=== PATIENT | female | born 1990 | race Caucasian/White ===

== ENCOUNTER 2025-08-07 17:18 | Emergency (ER) | payer BC ==
--- NOTE | 2025-08-07 17:50 | ERPHSYRPT ---
- History of Present Illness Historian: patient Exam Limitations: no limitations Timing/Duration: today Quality: sharpness, stabbing Abdominal Pain Onset Location: RUQ, flank Pain Radiation: no radiation Severity of Pain-Max: severe Severity of Pain-Current: moderate Previous symptoms: same symptoms as today Hx Tetanus, Diphtheria Vaccination/Date Given: Yes <JAYDEN WADE - Last Filed: 08/07/25 19:09> <RYAN ROMAN - Last Filed: 08/07/25 19:46> - History of Present Illness Time Seen by Provider: 08/07/25 17:49 Physician History: Patient presents to the emergency room with right sided flank/abdominal pain. Patient has a history of similar symptoms for which she was found to have UTI requiring IV antibiotics. She has a history of gastric bypass as well as cholecystectomy. Patient reports normal bowel movements, passing gas. She reports some dysuria. (JAYDEN WADE) Allergies/Adverse Reactions: topiramate [From [employer]] Adverse Reaction (Verified 08/07/25 17:56) Home Medications: Furosemide 20 mg [Lasix 20 mg] 20 mg PO UD PRN 05/14/25 [History] Omeprazole 20 mg PO DAILY 05/14/25 [History] Potassium Chloride 10 meq PO DAILY 05/14/25 [History] Travel Risk - Emerging Infectious Disease Are you exhibiting symptoms associated with any current EIDs: Yes Symptoms: Abdominal Pain <JAYDEN WADE - Last Filed: 08/07/25 19:09> - Review of Systems All Other Systems: Reviewed and Negative <JAYDEN WADE - Last Filed: 08/07/25 19:09> - Past Medical History Pertinent Past Medical History: Yes Neurological History: No Pertinent History Cardiac History: No Pertinent History Respiratory History: No Pertinent History Endocrine Medical History: Liver Disease Musculoskeletal History: Other Other Medical History: HX OF FATTY LIVER AND PCOS. - Past Surgical History Past Surgical History: Yes Musculoskeletal: Orthopedic Surgery Female Surgical History: Section Other Surgical History: ankle surgery - Social History Smoking Status: Never smoker Exposure to second hand smoke: No Drug Use: none - Social Determinants of Health Will the patient participate in the screening: Yes Do you worry about a steady place to live?: No In the past 12 months,have you had to go without utilities?: No Transportation Issues: No Has anyone in your support network made you feel unsafe?: No Have you or anyone in your house had to go w/o enough food: No <JAYDEN WADE - Last Filed: 08/07/25 19:09> - Physical Exam General Appearance: no apparent distress, obese Respiratory Exam: normal breath sounds, lungs clear, airway intact, No respiratory distress Cardiovascular Exam: regular rate/rhythm, normal heart sounds, capillary refill <2 sec Gastrointestinal/Abdomen Exam: soft, normal bowel sounds, tenderness (RUQ, RLQ, Suprapubic) Back Exam: No CVA tenderness <JAYDEN WADE - Last Filed: 08/07/25 19:09> - Nursing Vital Signs Nursing Vital Signs: Initial Vital Signs Temperature 97.7 F 08/07/25 17:48 Pulse Rate 84 08/07/25 17:48 Blood Pressure 107/83 08/07/25 17:48 O2 Sat by Pulse Oximetry 100 08/07/25 17:48 Pain Scale Pain Intensity 4 - Course Nursing assessment & vital signs reviewed: Yes <JAYDEN WADE - Last Filed: 08/07/25 19:09> Ordered Tests: Active Orders 24 hr Category Date Time Status IV Insertion STAT Care 08/07/25 18:00 Active ABDOMEN AND PELVIS W/0 CONTRAS [CT] Stat Exams 08/07/25 18:16 Completed CBC W DIFF Stat Lab 08/07/25 18:43 Completed CMP Stat Lab 08/07/25 18:43 Completed LIPASE Stat Lab 08/07/25 18:43 Completed Lactic Acid Stat Lab 08/07/25 18:00 Completed TROPONIN Q4H Lab 08/07/25 18:43 Completed TROPONIN Q4H Lab 08/07/25 22:00 Ordered TROPONIN Q4H Lab 08/08/25 02:00 Ordered UA W/RFX UR CULTURE Stat Lab 08/07/25 18:20 Completed Medication Summary Generic Name Dose Route Start Last Admin Trade Name Freq PRN Reason Stop Dose Admin Metronidazole 500 mg in 100 mls @ 200 mls/hr 08/07/25 19:17 08/07/25 19:27 Flagyl 500 Mg Ivpb IV 08/07/25 19:46 200 mls/hr STAT STA 200 mls/hr Administration Discontinued Medications Generic Name Dose Route Start Last Admin Trade Name Freq PRN Reason Stop Dose Admin Sodium Chloride 1,000 mls @ 999 mls/hr 08/07/25 18:00 08/07/25 18:40 Sodium Chloride 0.9% 1000 Ml IV 08/07/25 19:00 999 mls/hr .Q1H1M STA Administration Sodium Chloride Confirm 08/07/25 18:36 Sodium Chloride 0.9% 1000 Ml Administered 08/07/25 18:37 Dose 1,000 mls @ ud .ROUTE .STK-MED ONE Ceftriaxone Sodium 1 gm in 100 mls @ 200 mls/hr 08/07/25 18:48 08/07/25 19:13 Rocephin 1 Gm / 100 Ml Nacl IV 08/07/25 19:17 200 mls/hr STAT ONE 200 mls/hr Administration Ceftriaxone Sodium Confirm 08/07/25 19:11 Rocephin 1 Gm / 100 Ml Nacl Administered 08/07/25 19:12 Dose 1 gm in 100 mls @ ud IV .STK-MED ONE Metronidazole Confirm 08/07/25 19:25 Flagyl 500 Mg Ivpb Administered 08/07/25 19:26 Dose 500 mg in 100 mls @ ud IV .STK-MED ONE Morphine Sulfate 2 mg 08/07/25 18:00 08/07/25 18:39 Morphine Sulfate 2 Mg/Ml Inj IV 08/07/25 18:01 2 mg STAT ONE Administration Morphine Sulfate Confirm 08/07/25 18:36 Morphine Sulfate 2 Mg/Ml Inj Administered 08/07/25 18:37 Dose 2 mg .ROUTE .STK-MED ONE Ondansetron HCl 4 mg 08/07/25 19:36 08/07/25 19:39 Ondansetron Hcl 4 Mg/2 Ml Vial IV 08/07/25 19:37 4 mg STAT ONE Administration Ondansetron HCl Confirm 08/07/25 19:39 Ondansetron Hcl 4 Mg/2 Ml Vial Administered 08/07/25 19:40 Dose 4 mg .ROUTE .STK-MED ONE Lab/Rad Data: Laboratory Result Diagrams 08/07/25 18:43 08/07/25 18:43 Laboratory Results 08/07/25 08/07/25 08/07/25 Range/Units 18:43 18:43 18:20 WBC 11.5 H (3.98-10.04) x10^3/uL RBC 4.61 (3.93-5.22) x10^6/uL Hgb 13.8 (11.2-15.7) g/dL Hct 42.4 (34.1-44.9) % MCV 92.0 (79.4-94.8) fL MCH 29.9 (25.6-32.2) pg MCHC 32.5 (32.2-35.5) g/dL RDW 12.7 (11.7-14.4) % Plt Count 213 (182-369) x10^3/uL MPV 11.0 (9.4-12.3) fL Gran % 70.7 (34.0-71.1) % Immature Gran % (Auto) 0.3 (0.001-0.429) % Nucleat RBC Rel Count 0.0 (0.00-0.2) % Eos # (Auto) 0.15 (0.04-0.36) x10^3/uL Immature Gran # (Auto) 0.04 H (0.001-0.031) x10^3u/L Absolute Lymphs (auto) 2.29 (1.18-3.74) x10^3/uL Absolute Monos (auto) 0.87 H (0.24-0.86) x10^3/uL Absolute Nucleated RBC 0.00 (0.00-0.012) x10^3u/L Lymphocytes % 19.9 (19.3-51.7) % Monocytes % 7.6 (4.7-12.5) % Eosinophils % 1.3 (0.7-5.8) % Basophils % 0.2 (0.1-1.2) % Absolute Granulocytes 8.14 H (1.56-6.13) x10^3/uL Basophils # 0.02 (0.01-0.08) x10^3/uL Sodium 137 (135-145) mmol/L Potassium 4.0 (3.5-5.1) mmol/L Chloride 105 (98-107) mmol/L Carbon Dioxide 24 (22-30) mmol/L Anion Gap 11.4 (5-15) MEQ/L BUN 9 (7-17) mg/dL Creatinine 0.74 (0.52-1.04) mg/dL Estimated GFR 108.8 ML/MIN Glucose 88 (74-106) mg/dL Lactic Acid (0.4-2.0) Calcium 8.5 (8.4-10.2) mg/dL Total Bilirubin 0.90 (0.2-1.3) mg/dL AST 25 (14-36) U/L ALT 22 (0-35) U/L Alkaline Phosphatase 70 (38-126) U/L Troponin I < 0.012 (0.000-0.033) ng/mL Serum Total Protein 6.3 (6.3-8.2) g/dL Albumin 3.8 (3.5-5.0) g/dL Lipase 65 (23-300) U/L Urine Color Dark Yellow A (Yellow) Urine Appearance Clear (Clear) Urine pH 6.0 (4.6-8.0) Ur Specific Painter 1.020 (1.005-1.030) Urine Protein Negative (Negative) Urine Glucose (UA) Negative (Negative) mg/dL Urine Ketones Trace A (Negative) Urine Blood Negative (Negative) Urine Nitrite Negative (Negative) Urine Bilirubin Negative (Negative) Urine Urobilinogen 1.0 A (0.2) mg/dL Ur Leukocyte Esterase Small A (Negative) U Hyaline Cast (Auto) NONE SEEN (0-2) /LPF Urine Microscopic RBC 0-2 (0-5) /HPF Urine Microscopic WBC 3-5 (0-5) /HPF Ur Epithelial Cells Rare (None Seen) /HPF Urine Bacteria Rare A (None Seen) /HPF Urine Culture Reflexed NO (NO) 08/07/25 Range/Units 18:00 WBC (3.98-10.04) x10^3/uL RBC (3.93-5.22) x10^6/uL Hgb (11.2-15.7) g/dL Hct (34.1-44.9) % MCV (79.4-94.8) fL MCH (25.6-32.2) pg MCHC (32.2-35.5) g/dL RDW (11.7-14.4) % Plt Count (182-369) x10^3/uL MPV (9.4-12.3) fL Gran % (34.0-71.1) % Immature Gran % (Auto) (0.001-0.429) % Nucleat RBC Rel Count (0.00-0.2) % Eos # (Auto) (0.04-0.36) x10^3/uL Immature Gran # (Auto) (0.001-0.031) x10^3u/L Absolute Lymphs (auto) (1.18-3.74) x10^3/uL Absolute Monos (auto) (0.24-0.86) x10^3/uL Absolute Nucleated RBC (0.00-0.012) x10^3u/L Lymphocytes % (19.3-51.7) % Monocytes % (4.7-12.5) % Eosinophils % (0.7-5.8) % Basophils % (0.1-1.2) % Absolute Granulocytes (1.56-6.13) x10^3/uL Basophils # (0.01-0.08) x10^3/uL Sodium (135-145) mmol/L Potassium (3.5-5.1) mmol/L Chloride (98-107) mmol/L Carbon Dioxide (22-30) mmol/L Anion Gap (5-15) MEQ/L BUN (7-17) mg/dL Creatinine (0.52-1.04) mg/dL Estimated GFR ML/MIN Glucose (74-106) mg/dL Lactic Acid 0.7 (0.4-2.0) Calcium (8.4-10.2) mg/dL Total Bilirubin (0.2-1.3) mg/dL AST (14-36) U/L ALT (0-35) U/L Alkaline Phosphatase (38-126) U/L Troponin I (0.000-0.033) ng/mL Serum Total Protein (6.3-8.2) g/dL Albumin (3.5-5.0) g/dL Lipase (23-300) U/L Urine Color (Yellow) Urine Appearance (Clear) Urine pH (4.6-8.0) Ur Specific Painter (1.005-1.030) Urine Protein (Negative) Urine Glucose (UA) (Negative) mg/dL Urine Ketones (Negative) Urine Blood (Negative) Urine Nitrite (Negative) Urine Bilirubin (Negative) Urine Urobilinogen (0.2) mg/dL Ur Leukocyte Esterase (Negative) U Hyaline Cast (Auto) (0-2) /LPF Urine Microscopic RBC (0-5) /HPF Urine Microscopic WBC (0-5) /HPF Ur Epithelial Cells (None Seen) /HPF Urine Bacteria (None Seen) /HPF Urine Culture Reflexed (NO) <JAYDEN WADE - Last Filed: 08/07/25 19:09> <RYAN ROMAN - Last Filed: 08/07/25 19:46> - Progress Progress Note: Patients symptoms not typical for emergent causes of abdominal pain such as, but not limited to, appendicitis, abdominal aortic aneurysm, surgical biliary disease, pancreatitis, SBO, mesenteric ischemia, serious intra-abdominal bacterial illness. Presentation also not typical of gynecologic emergencies such as TOA, Ovarian Torsion, PID. Not Ectopic. Doubt atypical ACS. CBC, CMP, Lipase, UA, CT A/P ordered UA shows UTI. Started on Ceftriaxone. CT shows appendicitis. Added Flagyl. Surgeon for gastric bypass at [facility] in [facility]. Signed out to Dr. Roman at 1900. (JAYDEN WADE) Evaluated patient at [facility] patient has appendicitis on CT currently on IV Rocephin and Flagyl n.p.o. IV fluids are going pain is controlled patient had Rico-[id number] surgery by Dr. Finch at [facility] in November patient will need to be transferred and requesting that she see her surgeon for appendicitis 08/07/25 19:21 IMPRESSION: 1. The appendix appears enlarged, measuring about 1.1 cm, and is surrounded by fat stranding. Findings suggestive of acute appendicitis. Clinical correlation with lab data and further assessment by IV contrast is advised. New Finding. 2. A non-obstructive 2 mm stone in the mid-pole of the left kidney noted. Stable. 3. Small para-umbilical hernia passing omental fat. Stable. 4. 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 08/07/25 19:25 08/07/25 19:45 Discussed the case with the patient's bariatric surgeon at [facility] who accepts the patient for transfer for appendicitis (RYAN ROMAN) <JAYDEN WADE - Last Filed: 08/07/25 19:09> - Departure Departure Disposition: Transfer Critical Care Time: No <RYAN ROMAN - Last Filed: 08/07/25 19:46> - Departure Clinical Impression: Appendicitis Qualifiers: Appendicitis type: unspecified Qualified Code(s): K37 - Unspecified appendicitis Abdominal pain Qualifiers: Abdominal location: unspecified location Qualified Code(s): R10.9 - Unspecified abdominal pain Condition: Stable Referrals: MICHAELA SONG DO [Primary Care Provider, [facility]] - Follow up/PCP as directed Instructions: Abdominal pain
[2025-08-07 18:36] LABS: Glucose, Urine Negative (Negative); Protein,Urine Dip Negative (Negative); RBC 0-2 /HPF (0-5)
[2025-08-07] MEDS ORDERED: MORPHINE SULFATE 2 MG INJ ONE (18:36)
[2025-08-07] MEDS: MORPHINE SULFATE 2 MG INJ IV ONE (18:39)
[2025-08-07 18:46] LABS: BASOPHIL % 0.2 % (0.1-1.2); Basophil (Absolute #) 0.02 x10^3/uL (0.01-0.08); Eosinophil (Absolute #) 0.15 x10^3/uL (0.04-0.36); Hematocrit 42.4 % (34.1-44.9); Hemoglobin 13.8 g/dL (11.2-15.7); IMMATURE GRAN # 0.04 x10^3u/L (0.001-0.031); IMMATURE GRAN % 0.3 % (0.001-0.429); Lymphocyte (Absolute #) 2.29 x10^3/uL (1.18-3.74); Mean Corpuscular Hemoglobin 29.9 pg (25.6-32.2); Mean Corpuscular Hgb Concent. 32.5 g/dL (32.2-35.5); Monocyte (Absolute #) 0.87 x10^3/uL (0.24-0.86); NUCLEATED RBC # 0.00 x10^3u/L (0.00-0.012); NUCLEATED RBC % 0.0 % (0.00-0.2); Platelet Count 213 x10^3/uL (182-369); Red Blood Count 4.61 x10^6/uL (3.93-5.22); White Blood Count 11.5 x10^3/uL (3.98-10.04)
--- NOTE | 2025-08-07 19:03 | XRAY ---
CLINICAL HISTORY: abd pain COMPARISON: 05/14/2025. TECHNIQUE: Non-contrast CT of the abdomen and pelvis was performed, with the following protocol: axial images, and reconstructed coronal and sagittal images. No intravenous contrast was administered. One of the following dose reduction techniques was utilized for this exam: Automated exposure control, adjustment of the mA and/or kV according to patient size, and use of iterative reconstruction. FINDINGS: Abdomen: Appendix: The appendix appears enlarged measuring about 1.1 cm, and is surrounded by fat stranding. Findings suggestive of acute appendicitis. Clinical correlation with lab data and further assessment by IV contrast is advised. New Finding. No signs of perforation or abscess formation. Liver: Normal in size, shape, and density. No focal lesions, cysts, or masses were identified. Hepatic vasculature and biliary ducts are unremarkable. Gallbladder and Biliary System: The gallbladder is surgically excised. No billary dilatation. Pancreas: The pancreatic head, body, and tail are visualized and appear normal in size and density. No pancreatic masses or calcifications were noted. The pancreatic duct is not dilated. Spleen: Normal in size, shape, and density. timy calcific granuloma. No splenic solid lesions or masses were identified. Kidneys and Adrenal Glands: Both kidneys are normal in size, shape, and position. 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 Stable. A non-obstructive 2 mm stone in the mid pole of the left kidney noted. Cortical thickness is within normal limits. No hydronephrosis. Adrenal glands are unremarkable with no evidence of masses or hyperplasia. Pelvis: Urinary Bladder: Normal in contour and wall thickness. No intraluminal lesions identified. Uterus: Bulky in size but normal contour. No masses or abnormal thickening. Ovaries: No gross abnormalities noted. Vagina: Normal in contour and wall thickness. Cervix: No evidence of mass or abnormal thickening. Peritoneal and Retroperitoneal Structures: No free fluid or abnormal fluid collections were identified within the abdomen or pelvis. No lymphadenopathy was noted. Bowel: previous operative intervention on the stomach and bowel Small para-umbilical hernia, defect 5 mm, passing omental fat. Stable. No evidence of bowel obstruction. Bones and Soft Tissues: Pelvic bones and soft tissues are unremarkable. No fractures or abnormal masses were identified. IMPRESSION: 1. The appendix appears enlarged, measuring about 1.1 cm, and is surrounded by fat stranding. Findings suggestive of acute appendicitis. Clinical correlation with lab data and further assessment by IV contrast is advised. New Finding. 2. A non-obstructive 2 mm stone in the mid-pole of the left kidney noted. Stable. 3. Small para-umbilical hernia passing omental fat. Stable. 4. 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 Electronically Signed by: Brendon Joyce MD. (08/07/2025 19:01:21 EDT)
[2025-08-07] MEDS ORDERED: ROCEPHIN 1 GM / 100 ML NaCl 1 GM/100 ML IVPB IV ONE (19:11)
[2025-08-07] MEDS: ROCEPHIN 1 GM / 100 ML NaCl 1 GM/100 ML IVPB IV ONE (19:13)
[2025-08-07 19:22] LABS: Calcium 8.5 mg/dL (8.4-10.2); Carbon Dioxide 24 mmol/L (22-30); Creatinine 1 0.74 mg/dL (0.52-1.04); EST GLOMERULAR FILTRATION RATE 108.8 ML/MIN; Glucose 88 mg/dL (74-106); Potassium 4.0 mmol/L (3.5-5.1); SGOT/AST 25 U/L (14-36); SGPT/ALT 22 U/L (0-35); TROPONIN < 0.012 ng/mL (0.000-0.033); Total Protein 6.3 g/dL (6.3-8.2)
[2025-08-07] MEDS ORDERED: FLAGYL 500 MG IVPB 500 MG/100 ML BAG IV ONE (19:25)
[2025-08-07] MEDS: FLAGYL 500 MG IVPB 500 MG/100 ML BAG IV STA (19:27)
[2025-08-07] MEDS: Zofran 4 MG/2 ML VIAL IV ONE (19:39)
[2025-08-07] MEDS ORDERED: Zofran 4 MG/2 ML VIAL ONE (19:39)
[2025-08-07] MEDS ORDERED: MORPHINE SULFATE 4 MG INJ ONE (20:23)
[2025-08-07] MEDS: MORPHINE SULFATE 4 MG INJ IV ONE (20:23)
[2025-08-07 22:06] VITALS: BP 124/62; PULSE 63; RESP 15; TEMP 98.3; O2SAT 100
== END 2025-08-07 22:27 | disposition short-term general hospital (02) ==
LOC: ED 17:18
DX: K35.80 Unspecified acute appendicitis (principal); R10.9 Unspecified abdominal pain; Z79.899 Other long term (current) drug therapy; Z98.84 Bariatric surgery status